=== PATIENT | female | born 1990 | race African-American/Black ===

== ENCOUNTER 2019-04-10 15:30 | Emergency (ER) | payer SELFPAY ==
[~2019-04-10] VITALS: Ht 160 cm; Wt 98.0 kg
[2019-04-10 16:05] VITALS: BP 131/86
[2019-04-10] MEDS ORDERED: PROVENTIL HFA6.7 G2 INH (16:05)
--- NOTE | 2019-04-10 16:05 | PHYS DOC ---
Adult General Chief Complaint Chief Complaint: ASTHMA HPI HPI Patient is a 29 year old female who presents requesting an inhaler, patient states she has history of asthma, she states she moved from [place] to [place] and has not established care with a PCP. She states she was at work and was short of air, she states she was given an inhaler by somebody which cleared up her symptoms. She does not have her own inhaler. Denies any symptoms right now in the ED. Review of Systems Review of Systems Constitutional: Denies fever or chills [] Eyes: Denies change in visual acuity, redness, or eye pain [] HENT: Denies nasal congestion or sore throat [] Respiratory: Request for inhaler. Denies cough or shortness of breath [] Cardiovascular: No additional information not addressed in HPI [] GI: Denies abdominal pain, nausea, vomiting, bloody stools or diarrhea [] : Denies dysuria or hematuria [] Musculoskeletal: Denies back pain or joint pain [] Integument: Denies rash or skin lesions [] Neurologic: Denies headache, focal weakness or sensory changes [] ] All other systems were reviewed and found to be within normal limits, except as documented in this note. Physical Exam Physical Exam Constitutional: Well developed, well nourished, no acute distress, non-toxic appearance. [] HENT: Normocephalic, atraumatic, bilateral external ears normal, oropharynx moist, no oral exudates, nose normal. [] Eyes: PERRLA, EOMI, conjunctiva normal, no discharge. [] Neck: Normal range of motion, no tenderness, supple, no stridor. [] Cardiovascular:Heart rate regular rhythm, no murmur [] Lungs & Thorax: Bilateral breath sounds clear to auscultation [] Abdomen: Bowel sounds normal, soft, no tenderness, no masses, no pulsatile masses. [] Skin: Warm, dry, no erythema, no rash. [] Back: No tenderness, no CVA tenderness. [] Extremities: No tenderness, no cyanosis, no clubbing, ROM intact, no edema. [] Neurologic: Alert and oriented X 3, normal motor function, normal sensory function, no focal deficits noted. [] Psychologic: Affect normal, judgement normal, mood normal. [] EKG EKG [] Radiology/Procedures Radiology/Procedures [] Course & Med Decision Making Course & Med Decision Making Pertinent Labs and Imaging studies reviewed. (See chart for details) This is a 29-year-old female patient with history of asthma presenting to the ED today requesting an inhaler. Has no symptoms right now. Prescription given. List with primary care doctors as well as local clinics given. Dragon Disclaimer Dragon Disclaimer This electronic medical record was generated, in whole or in part, using a voice recognition dictation system. Departure Departure Impression: Primary Impression: Medication refill Additional Impression: Asthma Disposition: HOME, SELF-CARE Condition: STABLE Referrals: NO PCP (PCP) follow up with a doctor from the list provided Patient Instructions: Asthma, Adult, Medication Refill, Emergency Department Additional Instructions: You were evaluated in the emergency room and provided an inhaler prescription. Use it as ordered. Try and establish care with one of the primary care doctor's or local clinics and follow-up. Scripts Albuterol Sulfate (Proventil Hfa) 6.7 Gm Hfa.aer.ad 1 PUFF INH PRN Q6HRS PRN for SHORTNESS OF BREATH, #1 INHALER 1 Refill Prov: BRANDY LIZARRAGA APRN 04/10/19 Problem Qualifiers Additional Impression: Asthma Asthma severity: mild Asthma persistence: intermittent Asthma complication type: unspecified Qualified Codes: J45.20 - Mild intermittent asthma, uncomplicated BRANDY LIZARRAGA [employer] Apr 10, 2019 16:05
== END 2019-04-10 16:10 | disposition home or self-care (01) ==
LOC: ER 15:30
DX: J45.20 Mild intermittent asthma, uncomplicated (principal); Z76.0 Encounter for issue of repeat prescription
CPT/HCPCS: 99283

== ENCOUNTER → 2022-03-07 | Day surgery (SDC) | payer BC ==
[~2022-03-07] VITALS: Ht 157.5 cm; Wt 103.0 kg
[~2022-03-07] MED LIST: IV RINGERS,LACTATED 1000ML 1,000 ML IV SCH; LIDOCAINE 2% PF 5 ML VIAL. ONE; PROPOFOL 10 MG/ML (20ML) VIAL. IV ONE; PROVENTIL HFA6.7 G2 INH; SUCR1ORA14 PO
[2022-03-07 08:25] VITALS: BP 112/53
--- NOTE | 2022-03-07 08:53 | PDOC2 ---
CONSULT Date of Consult Date of Consult DATE: 03/07/22 TIME: 08:49 Reason for Consult Reason for Consult: epigastric abd pain/n/v History of Present Illness Reason for Visit: 32 year old Female is seen with above. Bloating is noted with the pain. Onset was gradual. She is . Family history is positive for PUD but negative for GB disease. Fatty and greasy foods are poorly tolerated. With the continued issues and lack of response to carafate and protonix, she requests further evaluation. Past Medical History Pulmonary: Asthma Past Surgical History Past Surgical History: No pertinent history Family History Family History: Heart Disease (grandparents) Social History No ALCOHOL: rare Current Medications Current Medications Current Medications Ringer's Solution 1,000 ml @ 100 mls/hr Q10H IV ; Start 03/07/22 at 08:45; Stop 03/08/22 at 08:44 Propofol (Diprivan) 200 mg STK-MED ONCE IV ; Start 03/07/22 at 08:41; Stop 03/07/22 at 08:41; Status DC Lidocaine HCl (Lidocaine Pf 2% Vial) 5 ml STK-MED ONCE .ROUTE ; Start 03/07/22 at 08:41; Stop 03/07/22 at 08:41; Status DC Active Scripts Active Proventil Hfa (Albuterol Sulfate) 6.7 Gm Hfa.aer.ad 1 Puff INH PRN Q6HRS PRN Reported Sucralfate 1 Gm/10 Ml Oral.susp 1 Gm PO TID Allergies Allergies: Coded Allergies: Sulfa (Sulfonamide Antibiotics) (Verified Allergy, Unknown, 03/07/22) ROS Gastrointestinal: Yes Nausea Physical Exam General: Alert, Oriented X3 Lungs: Clear to auscultation Heart: Regular rate, Normal S1, Normal S2 Abdomen: Normal bowel sounds, Soft, Other (epigastric tenderness to palpatoin) Vitals VITALS Vital Signs Date Time Temp Pulse Resp B/P (MAP) Pulse Ox O2 Delivery O2 Flow Rate FiO2 03/07/22 08:25 97.2 68 17 96 97.2 Labs Labs Laboratory Tests Test 03/07/22 08:21 Bedside Urine HCG, Qualitative Hcg negative (Negative) Laboratory Tests Test 03/07/22 08:21 Bedside Urine HCG, Qualitative Hcg negative (Negative) Assessment/Plan Assessment/Plan epigastric/LUQ pain-with n/v. Differential includes: PUD, celiac disease, hiatal hernia, GB disease, and/or gastroparesis. R/b discussed with patient who is wiling to proceed. AUGUSTINE CURRAN MD March 07, 2022 08:53
[2022-03-07 09:32] VITALS: BP 136/75
== END | disposition home or self-care (01) ==
LOC: ENDOS 07:56
PROVIDERS: ATTEND Internal Medicine Gastroenterology
DX: R10.13 Epigastric pain (principal); K29.50 Unspecified chronic gastritis without bleeding; R11.2 Nausea with vomiting, unspecified; J45.909 Unspecified asthma, uncomplicated; Z79.82 Long term (current) use of aspirin; Z79.899 Other long term (current) drug therapy; Z98.890 Other specified postprocedural states; Z72.89 Other problems related to lifestyle; Z88.2 Allergy status to sulfonamides
CPT/HCPCS: 43235; 81025; J2704